=== PATIENT | female | born 1995 | race Caucasian/White ===

== ENCOUNTER 2019-05-13 15:27 | Emergency (ER) | payer OTHER ==
[2019-05-13 17:32] LABS: ABS Lymphocytes 1.5 10^3/ul (1.0-4.8); ABS Monocytes 0.4 10^3/ul (0-0.8); ABS Neutrophils 2.9 10^3/ul (1.5-7.7); Eosinophil % 0.7 %; Hematocrit 44 % (35-47); Hemoglobin 14.9 g/dL (12.0-16.0); Lymphocyte % 30.2 %; Mean Corpuscular HGB Conc 34 g/dL (31-36); Mean Corpuscular Hemoglobin 31 pg (27-31); Mean Corpuscular Volume 91 fL (80-97); Mean Platelet Volume 7.8 fL (7.4-10.4); Platelet Count 305 10^3/uL (150-450); Red Blood Count 4.87 10^6 /uL (3.70-4.87); Red Cell Distribution Width 14 % (10-15); White Blood Count 4.8 10^3/uL (3.5-10.8)
[2019-05-13 17:53] LABS: ALT 11 U/L (7-52); AST 15 U/L (13-39); Albumin 4.8 g/dL (3.2-5.2); Albumin/Globulin Ratio 1.9 (1-3); Alkaline Phosphatase 71 U/L (34-104); Anion Gap 7 mmol/L (2-11); BUN/Creatinine Ratio 12.7 (8-20); Blood Urea Nitrogen 10 mg/dL (6-24); C Reactive Protein < 1.00 mg/L (<8.01); CO2 Carbon Dioxide 26 mmol/L (22-32); Calcium 9.7 mg/dL (8.6-10.3); Chloride 104 mmol/L (101-111); EGFR African American 110.1 (>60); Globulin 2.5 g/dL (2-4); Glucose 86 mg/dL (70-100); Potassium 4.4 mmol/L (3.5-5.0); Sodium 137 mmol/L (135-145); Total Protein 7.3 g/dL (6.4-8.9)
[2019-05-13 17:57] LABS: HCG Pregnancy < 0.60 mIU/mL
[2019-05-13] MEDS ORDERED: Dicyclomine CAP* 10 MG PO ONE (20:31)
--- NOTE | 2019-05-13 20:32 | ED ---
GI/ HPI - HPI Summary HPI Summary: Patient is a 23 y/o F presenting to the ED for a chief complaint of GI bleed. Patient notes abdominal pain that worsened one week ago. She describes the abdominal pain as a sharp sensation. She also reports bright red stools with diarrhea on 05/12/19. She complains of 3-4 episodes of diarrhea daily for the last week. Patient denies fever, chills, nausea, vomiting, vaginal bleeding, or vaginal discharge. No aggravating or alleviating factors are reported. She went to [facility] in the last year and studied [place] in [place] last semester. She was tested for a parasite in summer 2018 after having abdominal pain since July 2018. On 05/13/19, she was seen at [facility] for her symptoms and sent to [facility]. LNMP was one week ago. PMHx is significant for femur fracture. Patient admits alcohol use, but denies tobacco or drug use. Medications reviewed. Allergies noted. - History of Current Complaint Chief Complaint: EDGIBleed Time Seen by Provider: 05/13/19 20:16 Stated Complaint: ABD PAIN PER PT Hx Obtained From: Patient Onset/Duration: Atraumatic, Still Present Timing: Constant Severity: Moderate Current Severity: Moderate Pain Intensity: 6 Location of Pain: Diffuse Pain Characteristics: Sharp Associated Signs and Symptoms: Positive: Bright Red Blood w/Stool, Diarrhea. Negative: Nausea, Vomiting, Fever, Chills Additional Signs & Symptoms: Negative: Vaginal Bleeding, Vaginal Discharge Aggravating Factor(s): Nothing Alleviating Factor(s): Nothing - Allergy/Home Medications Allergies/Adverse Reactions: Allergies Allergy/AdvReac Type Severity Reaction Status Date / Time No Known Allergies Allergy Verified 05/13/19 15:50 PMH/Surg Hx/FS Hx/Imm Hx Previously Healthy: Yes Endocrine/Hematology History: Denies: Hx Diabetes Musculoskeletal History: Reports: Hx of Fracture(s) - Femur Sensory History: Denies: Hx Legally Blind, Hx Deafness Opthamlomology History: Denies: Hx Legally Blind EENT History: Denies: Hx Deafness - Surgical History Surgical History: None Surgery Procedure, Year, and Place: None Infectious Disease History: No Infectious Disease History: Denies: Traveled Outside the [place] in Last 30 Days - Family History Known Family History: Negative: Diabetes, Renal Disease - Social History Occupation: Student Lives: Alone Alcohol Use: Occasionally Hx Substance Use: No Substance Use Type: Reports: None Hx Tobacco Use: No Smoking Status (MU): Never Smoked Tobacco Review of Systems Negative: Fever, Chills Positive: Abdominal Pain, Diarrhea, Other - Bright red stools. Negative: Vomiting, Nausea Negative: discharge - Vaginal, other - Negative vaginal bleeding All Other Systems Reviewed And Are Negative: Yes Physical Exam - Summary Physical Exam Summary: Constitutional: Well-developed, Well-nourished, Alert. (-) Distressed Skin: Warm, Dry HENT: Normocephalic; Atraumatic Eyes: Conjunctiva normal Neck: Musculoskeletal ROM normal neck. (-) JVD, (-) Stridor, (-) Tracheal deviation Cardio: Rhythm regular, rate normal, Heart sounds normal; Intact distal pulses; Radial pulses are 2+ and symmetric. (-) Murmur Pulmonary/Chest wall: Effort normal. (-) Respiratory distress, (-) Wheezes, (-) Rales Abd: Soft, (-) tenderness, (-) Distension, (-) Guarding, (-) Rebound Musculoskeletal: (-) Edema Lymph: (-) Cervical adenopathy Neuro: Alert, Oriented x3 Psych: Mood and affect Normal Triage Information Reviewed: Yes Vital Signs On Initial Exam: Initial Vitals Temp Pulse Resp BP Pulse Ox 98.2 F 54 19 118/89 100 05/13/19 15:48 05/13/19 15:48 05/13/19 15:48 05/13/19 15:48 05/13/19 15:48 Vital Signs Reviewed: Yes Procedures - Sedation Patient Received Moderate/Deep Sedation with Procedure: No Diagnostics - Vital Signs Vital Signs Temp Pulse Resp BP Pulse Ox 05/13/19 18:06 98.7 F 66 18 115/79 100 05/13/19 15:48 98.2 F 54 19 118/89 100 - Laboratory Lab Results: Lab Results 05/13/19 05/13/19 05/13/19 Range/Units 17:22 17:22 17:22 WBC 4.8 (3.5-10.8) 10^3/uL RBC 4.87 (3.70-4.87) 10^6 /uL Hgb 14.9 (12.0-16.0) g/dL Hct 44 (35-47) % MCV 91 (80-97) fL MCH 31 (27-31) pg MCHC 34 (31-36) g/dL RDW 14 (10-15) % Plt Count 305 (150-450) 10^3/uL MPV 7.8 (7.4-10.4) fL Neut % (Auto) 60.1 % Lymph % (Auto) 30.2 % [place] % (Auto) 8.5 % Eos % (Auto) 0.7 % Baso % (Auto) 0.5 % Absolute Neuts (auto) 2.9 (1.5-7.7) 10^3/ul Absolute Lymphs (auto) 1.5 (1.0-4.8) 10^3/ul Absolute Monos (auto) 0.4 (0-0.8) 10^3/ul Absolute Eos (auto) 0.0 (0-0.6) 10^3/ul Absolute Basos (auto) 0.0 (0-0.2) 10^3/ul Absolute Nucleated RBC 0.0 10^3/ul Nucleated RBC % 0.0 Sodium 137 (135-145) mmol/L Potassium 4.4 (3.5-5.0) mmol/L Chloride 104 (101-111) mmol/L Carbon Dioxide 26 (22-32) mmol/L Anion Gap 7 (2-11) mmol/L BUN 10 (6-24) mg/dL Creatinine 0.79 (0.51-0.95) mg/dL Est GFR ( Amer) 110.1 (>60) Est GFR (Non-Af Amer) 91.0 (>60) BUN/Creatinine Ratio 12.7 (8-20) Glucose 86 (70-100) mg/dL Lactic Acid 0.5 (0.5-2.0) mmol/L Calcium 9.7 (8.6-10.3) mg/dL Total Bilirubin 0.80 (0.2-1.0) mg/dL AST 15 (13-39) U/L ALT 11 (7-52) U/L Alkaline Phosphatase 71 (34-104) U/L C-Reactive Protein < 1.00 (<8.01) mg/L Total Protein 7.3 (6.4-8.9) g/dL Albumin 4.8 (3.2-5.2) g/dL Globulin 2.5 (2-4) g/dL Albumin/Globulin Ratio 1.9 (1-3) Lipase 13 (11.0-82.0) U/L Beta HCG, Quant < 0.60 mIU/mL Result Diagrams: 05/13/19 17:22 05/13/19 17:22 Lab Statement: Any lab studies that have been ordered have been reviewed, and results considered in the medical decision making process. Re-Evaluation - Re-Evaluation First Eval Re-Evaluation Time: 21:04 Change: Unchanged Comment: At 21:04, patient does not want to provide a stool sample and wants to leave. GIGU Course/Dx - Course Course Of Treatment: Patient is here with GI symptoms that of been going on since July. Patient has been evaluated by multiple doctors multiple countries with no diagnosis. Patient has had a week of diarrhea that turned bloody today. Patient was recently in [facility] so a stool sample was attempted to be obtained but patient cannot provide a stool sample. Patient had blood performed which was grossly unremarkable with no leukocytosis, negative CRP, and no evidence of anemia. Patient has a no abdominal tenderness on exam. Patient did become emotional when she was told that there is no emergent condition as she is frustrated with not coming to a conclusion. Patient was given [facility] in GI for follow-up and started on Bentyl - Diagnoses Provider Diagnoses: Chronic abdominal pain, Diarrhea Discharge ED - Sign-Out/Discharge Documenting (check all that apply): Patient Departure - Discharge - Discharge Plan Condition: Stable Disposition: HOME Prescriptions: Dicyclomine CAP* [Bentyl CAP*] 10 mg PO TID PRN #20 cap PRN Reason: abdominal cramping Patient Education Materials: Chronic Abdominal Pain (ED) Referrals: [facility] - Lenin THOMAS [Primary Care Provider] - Say Snow MD [Medical Doctor] - [facility] [Outside] Additional Instructions: PLEASE RETURN TO EMERGENCY DEPARTMENT FOR SEVERE ABDOMINAL PAIN, YOU PASS OUT, FEVER, OR ANY NEW OR WORSENING SYMPTOMS. Please follow up with your primary care physician and Dr. Snow, a GI physician. Please make all follow-ups in 1- 3 days unless I advise you otherwise. Take your medications as prescribed. - Billing Disposition and Condition Condition: STABLE Disposition: Home - Attestation Statements Document Initiated by Scribe: Yes Documenting Scribe: Edilma Parra Provider For Whom Scribe is Documenting (Include Credential): Javad Hylton MD Scribe Attestation: I, Edilma Parra, scribed for Javad Hylton MD on 05/13/19 at 2123. Scribe Documentation Reviewed: Yes Provider Attestation: The documentation as recorded by the Edilma zee accurately reflects the service I personally performed and the decisions made by me, Javad Hylton MD Status of Scribe Document: Viewed
[2019-05-13 20:43] LABS: Urine Appearance Clear; Urine Bilirubin Negative (Negative); Urine Blood Negative (Negative); Urine Color Yellow; Urine Glucose Negative (Negative); Urine Ketones Trace (Negative); Urine Nitrite Negative (Negative); Urine Protein Negative (Negative); Urine Specific Gravity 1.011 (1.010-1.030); Urine Urobilinogen Negative (Negative)
[2019-05-13 21:39] VITALS: BP 119/87
== END 2019-05-13 21:35 | disposition home or self-care (01) ==
LOC: ED 15:27
DX: R10.9 Unspecified abdominal pain (principal); G89.29 Other chronic pain; R19.7 Diarrhea, unspecified
CPT/HCPCS: 36415; 80053; 81003; 83605; 83690; 84702; 85025; 86140; 99282